=== PATIENT | female | born 1985 | race Caucasian/White ===

== ENCOUNTER 2017-02-19 16:10 | Emergency (ER) | END 2017-02-19 17:02 | disposition home or self-care (01) | DX: R21 Rash and other nonspecific skin eruption (principal); R22.42 Localized swelling, mass and lump, left lower limb | CPT/HCPCS: J7512; Z7502; Z7610 ==

== ENCOUNTER 2017-02-27 16:11 | Emergency (ER) | payer OTHER ==
[~2017-02-27] VITALS: Ht 165.1 cm; Wt 100.2 kg
[~2017-02-27 16:11] MED LIST: BEN50 PO; HYDR-906 PO; IBUP-1542 PO; PRED20TA PO; PREN1TAB12 PO; PRENATAL VITAMINS
[2017-02-27 16:16] VITALS: Ht 165.1 cm; Wt 100.2 kg
[2017-02-27] MEDS ORDERED: ACET325T33 PO (18:43)
[2017-02-27] MEDS ORDERED: SULF1TAB31 PO (18:43)
[2017-02-27] MEDS ORDERED: CEPH-443 PO (18:43)
--- NOTE | 2017-02-27 20:45 | ERD ---
ER Documentation Chief Complaint Date/Time DATE: 02/27/17 TIME: 20:35 Chief Complaint SORES ON B/L LEGS X 1 WEEK HPI 31-year-old female patient with no significant past medical history presents to the ED complaining of a rash in her bilateral lower extremities that started 1 week ago. Patient reports that she took the prednisone however there was spontaneous drainage noted on the rash sites. Patient reports that it is itchy and also painful at the same time. Denies others having the same rash. Denies any new use of soaps, detergents, creams. Denies any insect bites. Denies any fever, pain, loss of sensation, loss of range of motion, nausea, vomiting. ROS All systems reviewed and are negative except as per history of present illness. Medications Home Meds Active Scripts Acetaminophen* (Tylenol*) 325 Mg Tablet, 2 TAB PO Q8 Y for PAIN AND OR ELEVATED TEMP, #20 TAB Prov:AMPARO TAY PA-C 02/27/17 Cephalexin* (Keflex*) 500 Mg Capsule, 500 MG PO QID for 7 Days, CAP Prov:AMPARO TAY PA-C 02/27/17 Sulfamethoxazole/Trimethoprim* (Bactrim Ds* Tablet) 1 Each Tablet, 1 TAB PO BID for 7 Days, #14 TAB Prov:AMPARO TAY PA-C 02/27/17 Diphenhydramine Hcl* (Benadryl*) 50 Mg Cap, 50 MG PO Q6 Y for SWELLING, #15 CAP Prov:DIONNE REDDY MD 02/19/17 Hydrocodone/Acetaminophen ([place] 5-325 Tablet) 1 Each Tablet, 1 TAB PO Q6H Y for PAIN, #10 TAB Prov:DIONNE REDDY MD 02/19/17 Ibuprofen* (Motrin*) 600 Mg Tab, 600 MG PO Q6, #15 TAB Prov:DIONNE REDDY MD 02/19/17 Prednisone* (Prednisone*) 20 Mg Tab, 40 MG PO DAILY for 4 Days, TAB Start February 20, 2017 Prov:DIONNE REDDY MD 02/19/17 Reported Medications Vit/Fe Fumarate/Fa ( 1-1 Tablet) 1 Tab Tablet, 1 TAB PO DAILY, #1 06/06/12 [ Vitamins] No Conflict Check 07/08/10 Allergies Allergies: Coded Allergies: No Known Drug Allergy (Verified Allergy, Unknown, 02/19/17) PMhx/Soc History of Surgery: Yes (APPENDECTOMY) Anesthesia Reaction: No Hx Neurological Disorder: No Hx Respiratory Disorders: No Hx Cardiac Disorders: No Hx Psychiatric Problems: No Hx Miscellaneous Medical Probl: No Hx Alcohol Use: No Hx Substance Use: No Hx Tobacco Use: No Smoking Status: Never smoker Physical Exam Vitals Vital Signs Date Time Temp Pulse Resp B/P Pulse Ox O2 Delivery O2 Flow Rate FiO2 02/27/17 16:16 98.2 90 18 125/75 98 Physical Exam Const: [id number], well-nourished. In no acute distress. Head: Atraumatic, normocephalic Eyes: Normal Conjunctiva without injection. No purulent discharge. PERRL. EOMI ENT: Normal external ear. Ear canal without erythema. Tympanic membrane pearly doll without effusion or bulging. Nasal canal clear with normal turbinates. Moist oropharynx without tonsillar exudates. Non-erythematous pharynx. Uvula midline. No drooling. No trismus. Neck: Full range of motion. No meningismus. No cervical lymphadenopathy. Resp: Clear to auscultation bilaterally. No wheezing, rhonchi, rales, or crackles. No accessory muscle use. No retractions. Cardio: Regular rate and rhythm. No murmurs, rubs or gallops. Abd: Soft, non tender, non distended. Normal bowel sounds. No palpable masses. No rebound tenderness. No guarding. Skin: No petechiae, purpura. Diffuse 1 cm oval erythematous rashes with spontaneous drainage noted of bilateral lower extremities. No fluctuance or induration. No bleeding noted. Back: No midline tenderness. No CVA tenderness. Ext: No cyanosis, or edema. Neur: Awake and alert. Psych: Normal Mood and Affect Procedures/MDM This is a 31-year-old female patient with no significant past medical history presents to the ED complaining of bilateral rashes noted that have not improved after taking prednisone. Patient is afebrile and nontoxic-appearing. Patient has normal vital signs. Low suspicion for scabies, SJS/TEN, erythema multiforme , sepsis, cellulitis, necrotizing fascitis, gangrene, meningococcemia or other emergent conditions. Wound check in 2 days treatment. This case was discussed with my supervising physician, Dr. Reddy who agreed with the management and discharge plan. Discharge medications: Keflex, Bactrim, Tylenol Follow up with primary care physician in 1-2 days. Instructed patient to return to the ED sooner for any worsening symptoms. Patient's questions were answered. Patient understood and agreed with discharge plan. Patient discharged stable. Departure Diagnosis: Primary Impression: Rash and nonspecific skin eruption Condition: Stable Patient Instructions: Self-Care for Skin Rashes, Abscess, Antiobiotic Treatment Only Referrals: COMMUNITY CLINICS YOU HAVE RECEIVED A MEDICAL SCREENING EXAM AND THE RESULTS INDICATE THAT YOU DO NOT HAVE A CONDITION THAT REQUIRES URGENT TREATMENT IN THE EMERGENCY DEPARTMENT. FURTHER EVALUATION AND TREATMENT OF YOUR CONDITION CAN WAIT UNTIL YOU ARE SEEN IN YOUR DOCTORS OFFICE WITHIN THE NEXT 1-2 DAYS. IT IS YOUR RESPONSIBILITY TO MAKE AN APPOINTMENT FOR FOLOW-UP CARE. IF YOU HAVE A PRIMARY DOCTOR --you should call your primary doctor and schedule an appointment IF YOU DO NOT HAVE A PRIMARY DOCTOR YOU CAN CALL OUR PHYSICIAN REFERRAL HOTLINE AT IF YOU CAN NOT AFFORD TO SEE A PHYSICIAN YOU CAN CHOSE FROM THE FOLLOWING [facility] [address] [facility]. [facility] [address] [facility] [facility] [address] [facility] [facility] [address] [facility] [facility] [address] [facility]. [facility]. [address] [facility]. [facility] YOU HAVE RECEIVED A MEDICAL SCREENING EXAM AND THE RESULTS INDICATE THAT YOU DO NOT HAVE A CONDITION THAT REQUIRES URGENT TREATMENT IN THE EMERGENCY DEPARTMENT. FURTHER EVALUATION AND TREATMENT OF YOUR CONDITION CAN WAIT UNTIL YOU ARE SEEN IN YOUR DOCTORS OFFICE WITHIN THE NEXT 1-2 DAYS. IT IS YOUR RESPONSIBILITY TO MAKE AN APPOINTMENT FOR FOLOW-UP CARE. IF YOU HAVE A PRIMARY DOCTOR --you should call your primary doctor and schedule and appointment IF YOU DO NOT HAVE A PRIMARY DOCTOR YOU CAN CALL OUR PHYSICIAN REFERRAL HOTLINE AT . IF YOU CAN NOT AFFORD TO SEE A PHYSICIAN YOU CAN CHOSE FROM THE FOLLOWING [facility] INSTITUTIONS: [facility] [address] [place] [address] [facility] [address] [place] [address] [facility] [address] [place] [address] [facility] URGENT CARE/SPECIALTIES Additional Instructions: Follow up in 2 days in your clinic for wound check. Call your primary care doctor TOMORROW for an appointment during the next 2-3 days.See the doctor sooner or return here if your condition worsens before your appointment time. AMPARO TAY PA-C Feb 27, 2017 20:44
== END 2017-02-27 18:57 | disposition home or self-care (01) ==
LOC: FTE 16:11
DX: R21 Rash and other nonspecific skin eruption (principal)
CPT/HCPCS: 99284